=== PATIENT | female | born 1965 | race Caucasian/White ===

== ENCOUNTER 2020-03-17 18:48 | Emergency (ER) | payer OTHER ==
[~2020-03-17] VITALS: Ht 167.6 cm; Wt 56.8 kg
[2020-03-17 18:50] VITALS: BP 134/90
== END 2020-03-17 19:47 | disposition left against medical advice (07) ==
LOC: EMS 18:50
DX: R60.0 Localized edema (principal); Z53.21 Procedure and treatment not carried out due to patient leaving prior to being seen by health care provider

== ENCOUNTER 2020-03-28 14:59 | Emergency (ER) | payer OTHER ==
[~2020-03-28] VITALS: Ht 167.6 cm; Wt 54.5 kg
[2020-03-28 15:00] VITALS: BP 132/68
[2020-03-28] MEDS ORDERED: ASPI-1192 PO (15:04)
== END 2020-03-28 16:00 | disposition left against medical advice (07) ==
LOC: EMS 15:06
DX: M25.571 Pain in right ankle and joints of right foot (principal); Z53.21 Procedure and treatment not carried out due to patient leaving prior to being seen by health care provider